=== PATIENT | female | born 1945 | race Caucasian/White ===

== ENCOUNTER 2019-10-26 01:35 | Day surgery (SDC) | payer MEDICARE, SELFPAY ==
--- NOTE | 2019-10-24 12:26 | PM.IMHP ---
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 she is here for re-excision of the lesion of the tongue Review of Systems Review of Systems: All systems reviewed & are unremarkable except as noted in HPI and below ROS unobtainable: No unobtainable due to mental condition ENT: Reports as per HPI Comments: lesion tongue Cardiovascular: Cardiovascular: Reports no additional cardiovascular complaints Respiratory: Respiratory: Reports no additional respiratory complaints Gastrointestinal: Gastrointestinal: Reports no additional gastrointestinal complaints Genitourinary: Genitourinary: Reports no additional female genitourinary complaints Musculoskeletal: Musculoskeletal: Reports no additional musculoskeletal complaints Integumentary/Breasts: Skin/Breast: Reports system reviewed and no additional complaints, except as docu Neurologic: Reports system reviewed and no additional complaints, except as documented Psychiatric: Psychiatric: Reports no additional psychiatric complaints and Reports depression [facility] Past Medical History Medical History Depression Hyperlipidemia Hypertension Hypothyroidism Surgical History Surgical History History of appendectomy History of tubal ligation Meds Home Medications and Allergies Home Medications Medication Instructions Recorded Confirmed Type Complete Multivitamin 1 tablet PO DAILY 08/10/19 08/17/19 History Hair, Skin, Nails with Biotin 1 tablet PO DAILY 08/10/19 08/17/19 History [place] Oil-1000 1 cap PO DAILY 08/10/19 08/17/19 History calcium carbonate-vitamin D3 1 cap PO DAILY 08/10/19 08/17/19 History [Calcium 600 with Vitamin D3] cholecalciferol (vitamin D3) 2,000 unit PO DAILY 08/10/19 08/17/19 History coQ10 (ubiquinol) 200 mg PO DAILY 08/10/19 08/17/19 History fluoxetine [Prozac] 20 mg PO DAILY 08/10/19 08/17/19 History ginseng 400 mg PO DAILY 08/10/19 08/17/19 History levothyroxine 75 mcg PO DAILY 08/10/19 08/17/19 History pravastatin 40 mg PO HS 08/10/19 08/17/19 History valsartan-hydrochlorothiazide 1 tablet PO DAILY 08/10/19 08/17/19 History [Diovan HCT] vitamin E 400 unit PO DAILY 08/10/19 08/17/19 History acetaminophen-codeine 1 tablet PO Q8H PRN #30 tablet 08/17/19 Rx [Tylenol-Codeine #3] Allergies Allergy/AdvReac Type Severity Reaction Status Date / Time aspirin Allergy Severe LIP Verified 08/17/19 08:00 SWELLING AND THROAT ibuprofen Allergy Severe Swelling Verified 08/17/19 08:00 of Lip/Tongue/Throat Exam HENMT: Head: normal to inspection Ears: hearing grossly normal bilaterally General nose exam: Normal external nose present Face and sinus: normal facial exam Mouth: Yes tongue abnormal (lesion lateral tongue) Teeth and gingiva: dentition normal Throat: posterior oropharynx normal H&P: Results ABG ABG results: Assessment and Plan Additional Plan plan is to excise the lesion of the tongue that is close with a margin is positive and reclosed the
[2019-10-24 12:57] VITALS: BMI 29.3
[2019-10-26] VITALS (9 sets, daily range): BP systolic 150–211; BP diastolic 64–80; PULSE 60–88; RESP 11–20; TEMP 36.4–37.4; O2SAT 98–100
--- NOTE | 2019-10-26 06:20 | WPDHPUPDATE1 ---
History and Physical Update Update Date/Time: 10/26/19 06:20 History and Physical has been reviewed, including an updated exam of the patient. There are NO changes in the patient's condition. Risks, benefits, and alternatives have been discussed and questions answered. Patient agrees to proceed with procedure.
[2019-10-26] MEDS: LACTATED RINGERS 1,000 ML 30 ML IV CONT (06:45)
--- NOTE | 2019-10-26 07:03 | P.PNAN_ITS ---
Anes - Initial Pre Proc Eval Procedure: Operation Date: 10/26/19 07:45 Proposed Procedures p Excision Squamous Cell Carcinoma on Tongue - Jhoan Mejias MD Date/Time: 10/26/19 07:03 Surgeon: Jhoan Mejias MD Pre Op Diagnosis: sq cell ca of tongue Patient Data Age: 74 Gender: F Height: 5 ft Weight: 68.1 kg Allergies Allergy/AdvReac Type Severity Reaction Status Date / Time aspirin Allergy Severe LIP Verified 10/24/19 12:55 SWELLING AND THROAT ibuprofen Allergy Severe Swelling Verified 10/24/19 12:55 of Lip/Tongue/Throat Home Medications Medication Instructions Recorded Confirmed Type Complete Multivitamin 1 tablet PO DAILY 08/10/19 10/24/19 History Hair, Skin, Nails with Biotin 1 tablet PO DAILY 08/10/19 10/24/19 History [place] Oil-1000 1 cap PO DAILY 08/10/19 10/24/19 History calcium carbonate-vitamin D3 1 cap PO DAILY 08/10/19 10/24/19 History [Calcium 600 with Vitamin D3] cholecalciferol (vitamin D3) 2,000 unit PO DAILY 08/10/19 10/24/19 History coQ10 (ubiquinol) 200 mg PO DAILY 08/10/19 10/24/19 History fluoxetine [Prozac] 20 mg PO DAILY 08/10/19 10/24/19 History ginseng 400 mg PO DAILY 08/10/19 10/24/19 History levothyroxine 75 mcg PO DAILY 08/10/19 10/24/19 History pravastatin 40 mg PO HS 08/10/19 10/24/19 History valsartan-hydrochlorothiazide 1 tablet PO DAILY 08/10/19 10/24/19 History [Diovan HCT] vitamin E 400 unit PO DAILY 08/10/19 10/24/19 History acetaminophen-codeine 1 tablet PO Q8H PRN #30 tablet 08/17/19 10/24/19 Rx [Tylenol-Codeine #3] Laboratory Tests 10/26/19 06:33 Sodium Pending Potassium Pending Chloride Pending Carbon Dioxide Pending BUN Pending Creatinine Pending Estim Creat Clear Calc Pending Estimated GFR Pending Glucose Pending Calcium Pending Patient hx anesthesia problems: none Family hx anesthesia problems: none PMFSH Past Medical History Medical History Depression Hyperlipidemia Hypertension Hypothyroidism Surgical History Surgical History History of appendectomy History of tubal ligation Anes - Eval Final PreProcedure Day of Procedure 10/26/19 07:03 Patient weight: overweight Heart: regular rate and rhythm Lungs: clear to auscultation Airway: Mallampati scale class II Neurological: alert and oriented Last oral intake: >/= 8 hours ASA classification: II Emergent: no Anesthetic plan: proceed Anesthesia type and monitoring: general ETT and standard monitoring Informed Consent: The patient's anesthetic plan and its attendant risks and benefits were discussed with the patient/family/POA. Questions were solicited and answers provided to the satisfaction of the patient/family/POA.
[2019-10-26 07:06] LABS: Blood Urea Nitrogen 16 mg/dL (7-17); Calcium 9.2 mg/dL (8.4-10.2); Carbon Dioxide 30 mmol/L (22-30); Chloride 101 mmol/L (98-107); Estimated CRCL calculation 69 ml/min; Estimated Glomerular Filt Rate > 60; Glucose 97 mg/dL (65-105); Potassium 3.7 mmol/L (3.4-5.0); Sodium 137 mmol/L (137-145)
[2019-10-26] MEDS: LIDO 1%/EPINEPHRINE 1:100,000 20 ML VIAL 6 ML INFILTRATE (08:00)
--- NOTE | 2019-10-26 08:18 | PM.PROC ---
Procedure Note - Detailed Date of procedure: 10/26/19 Pre-op diagnosis: sq cell ca of tongue pt was prepped. injeceted with local anesthetic.wide local incision 3cm by 3.53m. bovie for hemostasis Post-op diagnosis: same Procedure performed: Patient was prepped and draped general anesthesia the area on the right lateral tongue was injected with xylocaine with adrenaline. A wide local incision 3.5 x 3 cm was made dissection carried down to the musculature of the tongue hemostasis was obtained with bipolar cautery and Bovie. Was then closed with interrupted 3 0 chromic Anesthesia: GLMA and GETA Surgeon: Jhoan Mejias MD Estimated blood loss (mL): 50.0 Drains: No Packing: No Pathology: yes Complications: None Condition: stable Disposition: same day
[2019-10-26] MEDS: hydrALAZINE HCL 20 MG/ML VIAL 10 MG IV PUSH (09:41)
--- NOTE | 2019-10-26 09:41 | SUR.PHASEII ---
0935 - DR. FLANNERY NOTIFIED OF PT'S B/P 211/70 HR 60. ORDER RECEIVED.
== END 2019-10-26 10:14 | disposition home or self-care (01) ==
PROVIDERS: Anesthesiology; PCP Family Medicine; Visit Provider Otolaryngology
PROC: (CPT 40810; principal; 2019-10-26 07:45)
DX: C02.0 Malignant neoplasm of dorsal surface of tongue (principal); I10 Essential (primary) hypertension; E78.5 Hyperlipidemia, unspecified; E03.9 Hypothyroidism, unspecified; F32.9 Major depressive disorder, single episode, unspecified
CPT/HCPCS: 41112; 36415; 80048; 88305; J0330; J0360; J1100; J2250; J2405; J2704; J3010; J7120

== ENCOUNTER → 2021-10-20 00:37 | Outpatient (CLI) | payer MEDICARE, SELFPAY ==
[2021-10-20 11:27] LABS: SARS-CoV-2 RNA PCR Negative
== END ==
PROVIDERS: PCP Family Medicine; Visit Provider Otolaryngology
DX: Z01.812 Encounter for preprocedural laboratory examination (principal); Z20.822 Contact with and (suspected) exposure to COVID-19
CPT/HCPCS: C9803; U0003; U0005

== ENCOUNTER 2021-10-20 09:04 | Outpatient (CLI) | payer MEDICARE, SELFPAY ==
--- NOTE | 2021-10-20 09:15 | ECG_ITS ---
Measurements Intervals [place] Rate: 66 P: 19 [place]: 154 QRS: -5 QRSD: 102 T: 30 QT: 406 QTc: 428 Interpretive Statements SINUS RHYTHM MINIMAL VOLTAGE CRITERIA FOR LVH, CONSIDER NORMAL VARIANT [MEETS CRITERIA IN ONE OF: R(aVL), S(V1), R(V5), R(V5/V6)+S(V1)] COMPARED TO ECG 08/11/2019 13:39:51 ALTERED LEAD POSITION IN THE LATERAL PRECORDIAL LEADS Electronically Signed On 10-20-2021 14:25:29 CDT by Brett Leong M.D.
[2021-10-20 09:43] LABS: Anion Gap 5 mmol/L (8-16); Blood Urea Nitrogen 19 mg/dL (7-17); Calcium 9.4 mg/dL (8.4-10.2); Carbon Dioxide 30 mmol/L (22-30); Chloride 102 mmol/L (98-107); Estimated Glomerular Filt Rate > 60; Glucose 88 mg/dL (65-110); Potassium 3.5 mmol/L (3.4-5.0); Sodium 137 mmol/L (137-145)
== END 2021-10-20 09:05 | disposition home or self-care (01) ==
LOC: ANHSURGERY 09:08
PROVIDERS: Anesthesiology; PCP Family Medicine; Visit Provider Otolaryngology
DX: Z01.812 Encounter for preprocedural laboratory examination (principal); I10 Essential (primary) hypertension; Z20.822 Contact with and (suspected) exposure to COVID-19
CPT/HCPCS: 36415; 80048; 93005; C9803; U0003; U0005

== ENCOUNTER 2021-10-23 02:49 | Day surgery (SDC) | payer MEDICARE, SELFPAY ==
--- NOTE | 2021-10-17 10:31 | PC.NURSE ---
Addendum entered by Valentina Carrasco RN 10/17/21 10:46: COVID TESTING 10/20/21 AT 0900 Original Note: Report to the Outpatient Waiting Room, entrance under the green pavilion located off [facility], at time __714 on date __10/23/21 . OR Time: _914 . - You and your visitor will be asked a series of questions to screen for COVID 19 for your protection. - A mask is required within the hospital. Preoperative COVID Testing Requirements: No COVID Test needed if: (proof is required; if not received patient will have Rapid Test prior to entry) - Patient has received COVID Vaccine at least 14 days prior to procedure date or - Patient has positive COVID test result within last 90 days of surgery date. COVID Test needed if above criteria is not met If not COVID vaccinated a COVID test must be conducted within 72 hours of surgery and patient is asked to isolate self from time of testing until procedure. You will go to the [facility] for your COVID testing. The [facility] Testing site is located at the corner of [address] [facility]. You will only be called if COVID results are positive and your surgeon may reschedule your elective surgery date. Patients may have clear liquids (water, carbonated beverages, clear teas, apple juice) until 3 hours prior to surgery with a maximum of 20 ounces. - No food from midnight until time of surgery Take the following medications with a SIP of water the morning of surgery: ___LEVOTHYROXINE, PROZAC Medications to discontinue per physician __ALL VITAMINS AND SUPPLEMENTS 3 DAYS PRE OP Date to take last dose___10/19/21 Please no make-up, nail divehi, hairspray, perfume, deodorant, or body powder the day of surgery. No jewelry (including any body piercings) or valuables the day of surgery, leave them at home. Please take a shower or bath the night before, or the morning of, surgery with an antibacterial soap. Wear comfortable, loose fitting clothing. Children are encouraged to wear pajamas. - Jewelry must be removed prior to entering the operating room. Rings and piercings that are not removed may be cut off. - The hospital will not accept responsibility for valuables. - Please leave all valuables, including medications, at home the day of surgery. If you are going home after surgery, a licensed hazmat truck driver must drive you home. - NO public transportation without another adult. - We recommend that an adult stay with you for 24 hours following discharge. - We also recommend that you do not drive, make important decision, drink alcoholic beverages, or take any drugs that were not prescribed by your health care provider for at least 24 hours after your discharge time. One visitor will be allowed to accompany the patient into the hospital. Patients visitor will be instructed to remain with patient at all times or leave the building. We will allow the visitor to come back to the postoperative area when patient is ready. Follow any additional instructions given to you from your surgeon. Telephone instructions given to _PATIENT and asked if any additional questions and then verbalized understanding. Patient advised to call surgeon office or pre surgery nurse liaison [phone] if any additional questions.
[2021-10-17 10:38] VITALS: BMI 28.9
--- NOTE | 2021-10-21 06:30 | P.HP_ITS ---
History of Present Illness History of Present Illness Consent: Risks, benefits, and alternatives have been discussed and questions answered. Patient agrees to proceed with procedure. 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 it was cancer several years agoKriss Pacheco is a 76 year old female [facility], [facility] Past Medical History Medical History Depression Hyperlipidemia Hypertension Hypothyroidism Normal colonoscopy (~2019) Every 5 years, polyps Squamous acanthoma of face Squamous cells removed from tongue Tongue abnormality Surgical History Surgical History History of appendectomy History of oral surgery History of tubal ligation Family History Family History Sibling Manic depression Pancreas cancer Grandparent Manic depression Social History Social History Smoking status: Never smoker Second hand tobacco smoke exposure: No Alcohol intake: never Substance use: never Substance use type: does not use Gender identity (if verbalized by the patient): Female Spiritual care concerns: No Comments medical social family surgical history all noncontributory Meds Home Medications and Allergies Home Medications Medication Instructions Recorded Confirmed Type Complete Multivitamin 1 tablet PO DAILY 08/10/19 10/17/21 History Hair, Skin, Nails with Biotin 1 tablet PO DAILY 08/10/19 10/17/21 History [place] Oil-1000 1 cap PO DAILY 08/10/19 10/17/21 History calcium carbonate-vitamin D3 1 cap PO DAILY 08/10/19 10/17/21 History [Calcium 600 with Vitamin D3] cholecalciferol (vitamin D3) 2,000 unit PO DAILY 08/10/19 10/17/21 History coQ10 (ubiquinol) 200 mg PO DAILY 08/10/19 10/17/21 History ginseng 400 mg PO DAILY 08/10/19 10/17/21 History vitamin E 400 unit PO DAILY 08/10/19 10/17/21 History levothyroxine 75 mcg tablet 75 mcg PO DAILY #90 tablet 10/30/20 10/17/21 Rx Prozac 20 mg capsule 20 mg PO DAILY #90 cap NS 10/31/20 10/17/21 Rx valsartan 320 1 tablet PO DAILY #90 tablet 11/13/20 10/17/21 Rx mg-hydrochlorothiazide 25 mg tablet pravastatin 40 mg tablet 40 mg PO HS #90 tablet 07/15/21 10/17/21 Rx Allergies Allergy/AdvReac Type Severity Reaction Status Date / Time aspirin Allergy Severe LIP Verified 10/17/21 10:19 SWELLING AND THROAT ibuprofen Allergy Severe Swelling Verified 10/17/21 10:19 of Lip/Tongue/Throat Exam Narrative: chest clear heart without murmurs abdomen soft as sore on the right lateral tongue Assessment and Plan Additional Plan plan is excision lesion of the tongue
[2021-10-23] VITALS (9 sets, daily range): BP systolic 156–210; BP diastolic 58–98; PULSE 60–73; RESP 12–16; TEMP 36.2–36.9; O2SAT 92–100
--- NOTE | 2021-10-23 06:29 | WPDHPUPDATE1 ---
History and Physical Update Update Date/Time: 10/23/21 06:29 History and Physical has been reviewed, including an updated exam of the patient. There are NO changes in the patient's condition. Risks, benefits, and alternatives have been discussed and questions answered. Patient agrees to proceed with procedure.
[2021-10-23] MEDS: LACTATED RINGERS 1,000 ML 30 ML IV CONT (07:03)
--- NOTE | 2021-10-23 07:41 | WPDANESEPPF ---
Anes - Initial Pre Proc Eval Procedure: Operation Date: 10/23/21 08:30 Proposed Procedures p Excision Leukoplakia Right Lateral Tongue with Frozen Section - Jhoan Mejias MD Date/Time: 10/23/21 07:41 Surgeon: Jhoan Mejias MD Pre Op Diagnosis: Right Lateral Tongue Lesion Patient Data Age: 76 Gender: F Height: 1.52 m Weight: 69.2 kg Last Vital Signs Temp 36.9 C 10/23/21 07:05 Pulse 68 10/23/21 07:05 Resp 16 10/23/21 07:05 BP 166/58 H 10/23/21 07:05 Pulse Ox 99 10/23/21 07:05 Allergies Allergy/AdvReac Type Severity Reaction Status Date / Time aspirin Allergy Severe LIP Verified 10/23/21 06:38 SWELLING AND THROAT ibuprofen Allergy Severe Swelling Verified 10/23/21 06:38 of Lip/Tongue/Throat Home Medications Medication Instructions Recorded Confirmed Type Complete Multivitamin 1 tablet PO DAILY 08/10/19 10/23/21 History Hair, Skin, Nails with Biotin 1 tablet PO DAILY 08/10/19 10/23/21 History [place] Oil-1000 1 cap PO DAILY 08/10/19 10/23/21 History calcium carbonate-vitamin D3 1 cap PO DAILY 08/10/19 10/23/21 History [Calcium 600 with Vitamin D3] cholecalciferol (vitamin D3) 2,000 unit PO DAILY 08/10/19 10/23/21 History coQ10 (ubiquinol) 200 mg PO DAILY 08/10/19 10/23/21 History ginseng 400 mg PO DAILY 08/10/19 10/23/21 History vitamin E 400 unit PO DAILY 08/10/19 10/23/21 History levothyroxine 75 mcg tablet 75 mcg PO DAILY #90 tablet 10/30/20 10/23/21 Rx Prozac 20 mg capsule 20 mg PO DAILY #90 cap NS 10/31/20 10/23/21 Rx valsartan 320 1 tablet PO DAILY #90 tablet 11/13/20 10/23/21 Rx mg-hydrochlorothiazide 25 mg tablet pravastatin 40 mg tablet 40 mg PO HS #90 tablet 07/15/21 10/23/21 Rx Patient hx anesthesia problems: none Family hx anesthesia problems: none Results Review: All pre-operative results and documents have been reviewed as part of the pre-operative evaluation. [facility] Past Medical History Medical History Depression Hyperlipidemia Hypertension Hypothyroidism Normal colonoscopy (~2019) Every 5 years, polyps Squamous acanthoma of face Squamous cells removed from tongue Tongue abnormality Surgical History Surgical History History of appendectomy History of oral surgery History of tubal ligation Family History Family History Sibling Manic depression Pancreas cancer Grandparent Manic depression Social History Social History Smoking status: Never smoker Second hand tobacco smoke exposure: No Alcohol intake: never Substance use: never Substance use type: does not use Living arrangements: with family Gender identity (if verbalized by the patient): Female Spiritual care concerns: No Anes - Eval Final PreProcedure Day of Procedure 10/23/21 07:41 Patient weight: overweight Heart: regular rate and rhythm Lungs: clear to auscultation Airway: Mallampati scale class II Neurological: alert and oriented Last oral intake: >/= 8 hours ASA classification: III Emergent: no Anesthetic plan: proceed Anesthesia type and monitoring: general ETT and standard monitoring Results Review: All pre-operative results and documents have been reviewed as part of the pre-operative evaluation. Informed Consent: The patient's anesthetic plan and its attendant risks and benefits were discussed with the patient/family/POA. Questions were solicited and answers provided to the satisfaction of the patient/family/POA.
[2021-10-23] MEDS: LIDO 1%/EPINEPHRINE/PF 1:200,000 30 ML VIAL 10 ML XX (08:07)
--- NOTE | 2021-10-23 08:25 | W.PM.PROC2 ---
Procedure Note - Detailed Date of Procedure 10/23/21 Pre-op Diagnosis Right Lateral Tongue Lesion Post-op Diagnosis Same Procedure Performed Excision leukoplakia right lateral tongue Surgeon Jhoan Mejias MD Description of Procedure After induction of anesthesia the area of the right lateral tongue was injected with xylocaine with adrenaline an elliptical incision made the lesion was removed sent for pathology and cauterized and closed with multiple 4-0 multiple 3-0 Vicryl
[2021-10-23] MEDS: fentaNYL CITRATE INJ (*CRX) 100 MCG/2 ML VIAL 25 MCG IV PUSH ×3 (09:04→09:59)
--- NOTE | 2021-10-23 10:22 | SUR.PHASEII ---
pt BP is elevated even after pain control. This nurse called dr moraes for BP control and he gave verbal meds placed in oct.
== END 2021-10-23 10:58 | disposition home or self-care (01) ==
PROVIDERS: PCP Family Medicine; Visit Provider Otolaryngology
PROC: (CPT 41112; principal; 2021-10-23 08:30)
DX: K14.8 Other diseases of tongue (principal); I10 Essential (primary) hypertension; E78.5 Hyperlipidemia, unspecified; E03.9 Hypothyroidism, unspecified; F32.9 Major depressive disorder, single episode, unspecified; Z85.810 Personal history of malignant neoplasm of tongue
CPT/HCPCS: 41112; 88305; 88331; J0330; J1100; J2405; J2704; J3010; J7120

== ENCOUNTER → 2022-12-26 11:09 | Outpatient (CLI) | payer MEDICARE, SELFPAY ==
--- NOTE | ~2022-12-26 | MR_ITS ---
EXAMINATION: MR lumbar spine wo con DATE: 12/26/2022 12:07 INDICATION: Lumbago. Left-sided low back pain. TECHNIQUE: Magnetic resonance imaging (MRI) of the lumbar spine was performed without intravenous con trast. Sequences included sagittal T2-weighted FSE, sagittal T2-weighted FS FSE, sagittal T1-weighted FSE, and axial T2-weighted FSE. COMPARISON: None FINDINGS: There is 3 degrees dextrocurvature of lumbar spine. Vertebral body heights are normal. Ther e is mildly decreased disc height at L1-L2, moderately decreased disc height at L2-L3, and mildly dec reased disc height at L4-L5. The distal spinal cord signal intensity is normal. The conus medullaris is at L1. The following disc levels are specifically discussed: L1-L2: The disc is bulging. There is mild bilateral facet joint osteoarthritis. There is mild bilater al neural foraminal stenosis. There is mild central canal stenosis. L2-L3: The disc is bulging. There is moderate right and mild left facet joint osteoarthritis. There i s mild bilateral neural foraminal stenosis. There is mild central canal stenosis. L3-L4: The disc is bulging and has an annular fissure. There is severe bilateral facet joint osteoart hritis. There is mild bilateral neural foraminal stenosis. There is mild central canal stenosis. L4-L5: The disc is bulging with superimposed central extrusion. There is severe bilateral facet joint osteoarthritis. There is mild bilateral neural foraminal stenosis. There is moderate central canal s tenosis. L5-S1: The disc is bulging. There is severe right and moderate left facet joint osteoarthritis. There is mild bilateral neural foraminal stenosis. There is mild central canal stenosis. IMPRESSION: 1. Moderate lumbar spondylosis. Reviewed, dictated and finalized at location A.
== END ==
PROVIDERS: PCP Family Medicine; Visit Provider Nurse Practitioner Family
DX: M47.896 Other spondylosis, lumbar region (principal)
CPT/HCPCS: 72148

== ENCOUNTER → 2023-09-06 09:49 | Outpatient (CLI) | payer MEDICARE, SELFPAY ==
--- NOTE | ~2023-09-06 | XR_ITS ---
XR hip BI 2V w AP pelvis DATE: 09/06/2023 10:37 INDICATION: Sacrococcygeal disorder TECHNIQUE: AP pelvis. AP and lateral views of each hip. COMPARISON: None FINDINGS: The pubic symphysis and sacroiliac joints are intact. Hip joint spaces are symmetric and re latively well preserved. No pelvic fracture or bone destruction. No fracture, dislocation, avascular necrosis or bone destruction of either hip is detected. Surgical clips overlie the right lower quadrant. IMPRESSION: No significant abnormality of pelvis or either hip Reviewed, dictated and finalized at location B. DEVELOPER CONSULTANT
== END ==
PROVIDERS: PCP Nurse Practitioner Family; Visit Provider Nurse Practitioner Family
DX: M53.3 Sacrococcygeal disorders, not elsewhere classified (principal)
CPT/HCPCS: 73521

== ENCOUNTER 2024-09-29 10:06 | Outpatient (CLI) | payer MEDICARE, SELFPAY ==
--- NOTE | ~2024-09-29 | MM_ITS ---
EXAMINATION: MM screening bari BI w isa HISTORY: Screening TECHNIQUE: Craniocaudal and mediolateral oblique 3-D tomosynthesis images were obtained and synthetic 2-D images were generated. CAD analysis was submitted and interpreted. COMPARISON: 08/13/2015 BREAST PARENCHYMAL COMPOSITION: Not dense: There are scattered areas of fibroglandular density. FINDINGS: There is no evidence of suspicious mass, calcification, or architectural distortion to sugg est malignancy in either breast. There has been no suspicious interval change. IMPRESSION: 1. No mammographic evidence of malignancy. 2. Recommend routine screening mammography in one year. BI-RADS Category 1: Negative Reviewed, dictated and finalized at location L. OR FIRMWARE ENGINEER
--- NOTE | ~2024-09-29 | DEXA_ITS ---
Bone Density Report Name: YONY ALEXIS Age: 79 Sex: Female Ethnicity: White Date of : 1945 Indication: postmenopausal; screening for osteoporosis; Referring Provider: SHERIN PARRA Study: Bone densitometry was performed. Exam Date: September 29, 2024 Accession number: [id number] Bone Density: Region BMD T-score Z-score Classification AP Spine(L1-L4) 0.940 -1.0 1.8 Normal Femoral Neck (Left) 0.704 -1.3 1.1 Osteopenia Total Hip (Left) 0.831 -0.9 1.2 Normal Femoral Neck (Right) 0.670 -1.6 0.7 Osteopenia Total Hip (Right) 0.844 -0.8 1.3 Normal Total Hip Mean 0.837 -0.9 1.3 Normal World Health Organization criteria for BMD impression classify patients as: Normal (T-score at or above -1.0), Osteopenia (T-score between -1.0 and -2.5), or Osteoporosis (T-score at or below -2.5). 10-year Fracture Risk: FRAX not reported because: Treated for osteoporosis Clinical Information Provided by Patient: Is being treated for osteoporosis Has used the following medications: Fosamax (i.e. alendronate), Vitamin D, Calcium Patient maximum height was 60 Menopause Age: 53 No regular weight bearing exercise Onset of menses at age 12 Number of children 2 Impression: The patient has low bone mass, based on the Right Femoral Neck T-score. Discussion: It is important to ask patients whether they are taking their medications and to encourage continued and appropriate compliance with their osteoporosis therapies to reduce fracture risk. It is also important to review their risk factors and encourage appropriate calcium and vitamin D intakes, exercise, fall prevention and other lifestyle measures. Follow-Up: Consider a repeat BMD and Vertebral Fracture Assessment (VFA) exam in 2 years or sooner if medically necessary, to reassess this patient's status. Reported by: CHAYITO on 09/29/2024 10:49:00 AM. Reviewed, dictated and finalized at location AKristopher BILLINGSLEY
== END 2024-09-29 10:07 | disposition home or self-care (01) ==
LOC: ANHIMG 10:06
PROVIDERS: PCP Family Medicine; Visit Provider Family Medicine
DX: Z12.31 Encounter for screening mammogram for malignant neoplasm of breast (principal); Z78.0 Asymptomatic menopausal state; M85.89 Other specified disorders of bone density and structure, multiple sites
CPT/HCPCS: 77063; 77067; 77080

== ENCOUNTER 2025-03-29 11:21 | Emergency (ER) | payer MEDICARE, SELFPAY ==
--- NOTE | ~2025-03-29 | XR_ITS ---
EXAMINATION: XR wrist LT min 3V DATE: 03/29/2025 11:58 INDICATION: Left wrist pain. Ulnar side one week after lifting TECHNIQUE:4 images of the left wrist were obtained. COMPARISON: none FINDINGS: Bones appear osteopenic. Severe joint space narrowing in the first carpometacarpal joint with adjacent soft tissue swelling. No fracture. No dislocation. Soft tissue swelling about the left wrist. IMPRESSION: 1. Severe joint space narrowing in the first carpometacarpal joint with adjacent soft tissue swelling. 2. No fracture identified. If symptoms persist or worsen, consider a short-term follow-up study or additional imaging for further assessment. Reviewed, dictated and finalized at location A. IMPRESSION: 1. Severe joint space narrowing in the first carpometacarpal joint with adjacen t soft tissue swelling. 2. No fracture identified. If symptoms persist or worsen, consider a short-term follow-up study or additio nal imaging for further assessment.
[2025-03-29 11:32] VITALS: BP 192/71; PULSE 68; RESP 18; TEMP 36.8; O2SAT 98
--- NOTE | 2025-03-29 11:53 | ED_ITS ---
HPI - Extremity Injury (Upper) General Chief Complaint: Extremity Injury, Upper Stated Complaint: Left Arm Pain Time Seen by Provider: 03/29/25 11:40 Source: patient and RN notes reviewed Mode of arrival: ambulatory Limitations: no limitations History of Present Illness HPI narrative: 79-year-old female presents Express Care complaining of left wrist pain for approximately 1 week. Patient says 1 week ago she was lifting heavy tubs full of books since then patient reports a continue have left wrist pain primarily on her lateral with radiating pain upper forearm. Patient states yesterday she was lifting groceries with her left wrist and cause worsening pain. Patient took Tylenol with minimal relief. Patient denies any numbness or tingling, or any other injuries. Patient has a history of osteoporosis. Related Data Home Medications ?Medication ?Instructions ?Recorded ?Confirmed ?Last Taken ?Type ascorbic acid 7.5 mg-vit E 7.5 1 tablet PO DAILY 08/1003/09/25 10/19/21 History unit-biotin 1,250 mcg chewable tablet (Hair,Skin,Nails with Biotin) calcium 600 mg (as 1 cap PO DAILY 08/10/19/09/0210/19/21 History carbonate)-vitamin D3 12.5 mcg (500 unit) capsule (Calcium with Vit D3) cholecalciferol (vitamin D3) 50 2,000 unit PO DAILY 03/09/25 10/19/21 History mcg (2,000 unit) tablet coQ10 (ubiquinol) 200 mg capsule 200 mg PO DAILY 08/1003/09/25 10/19/21 History ginseng 250 mg capsule 400 mg PO DAILY 08/10/1909/0210/19/21 History multivitamin,aa-guko-xcmfcsie 1 tablet PO DAILY 07/26/23 10/19/21 History (Complete Multivitamin tablet) salmon oil-omega-3 fatty acids 1 cap PO DAILY 08/10/19 03/09/25 10/19/21 History 1,000 mg-200 mg capsule ([place] Oil-) vitamin E 268 mg (400 unit) capsule 400 unit PO DAILY 08/10/19 03/09/25 10/19/21 History latanoprost 0.005 % eye drops drp 03/29/25 Unknown Hi story Allergies Allergy/AdvReac Type Severity Reaction Status Date / Time aspirin Allergy Severe LIP Verified 03/29/25 11:24 SWELLING AND THROAT ibuprofen Allergy Severe Swelling Verified 03/29/25 11:24 of Lip/Tongue/Throat codeine Allergy Intermediate headache Verified 03/29/25 11:24 Review of Systems Review of Systems: CONSTITUTIONAL: Denies fever, chills, or sweats. EYES: Denies visual changes, redness, or discharge. ENT: Denies rhinorrhea, congestion, sore throat, or otalgia. CARDIOVASCULAR: Denies chest pain, palpitations, or edema. RESPIRATORY: Denies cough or dyspnea. GASTROINTESTINAL: Denies abdominal pain, nausea, vomiting, or diarrhea. GENITOURINARY: Denies dysuria or hematuria. SKIN: Denies rash, wound, or itching. MUSCULOSKELETAL: Denies back pain, joint pain, or myalgia. Positive for left wrist pain. NEUROLOGIC: Denies headache, numbness, or weakness. PSYCHIATRIC: Denies anxiety or depression. All other systems reviewed are negative, except as documented in HPI. 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 Depression Hypothyroidism Hypertension Hyperlipidemia Surgical History Surgical History History of oral surgery History of tubal ligation History of appendectomy Family History Family History Sibling Manic depression Pancreas cancer Grandparent Manic depression Other (atherosclerosis) Social History Social History Social History: Caffeine-occasionally Smoking status: Never smoker Second hand tobacco smoke exposure: No Alcohol intake: never Substance use: never Substance use type: does not use Lack of Transportation: No Lack of Food: Never True Current Housing: I Have Housing Concerned About Future Housing: No Difficulty Paying Gas/Electric Bills: No Difficulty Paying for Meds: No Currently Unemployed: No Education: Decline to Answer Difficulty w/ Childcare or Family Care: No Living arrangements: with family Occupation/Education: retired Gender identity (if verbalized by the patient): Female Spiritual care concerns: No Comments At the time of my signature, I reviewed and agree with the nursing past medical, surgical, social, and family history. There is no relevant family history pertinent to the patient complaint. Exam Narrative: GENERAL: This is a well-nourished, well-developed adult, in no apparent distress. They are non ill-appearing, nontoxic appearing. Patient is wearing a sling. HEAD: normocephalic, atraumatic. EYES: Sclera clear/white. Vision is grossly intact. Conjunctiva normal. Extraocular movement intact. EARS: External ears normal Hearing grossly intact. NOSE: External nose normal THROAT: Mucous membranes moist NECK: Neck supple CARDIOVASCULAR: Regular rate and rhythm RESPIRATORY: Respiratory rate normal, respiratory effort nonlabored, no respiratory distress NEURO: awake, alert, and oriented to person, place and time. There were no obvious focal neurologic abnormalities. EXTREMITIES: Left wrist. No obvious deformity, injury, swelling, bruising, redness. There is pain through full range of motion. Tenderness to palpation to lateral wrist. Capillary refill less than 3 seconds. Left radial Pulse 2 +palpable. Normal sensation. Neurovascular status intact distal injury. Patient can make a fist, thumbs-up sign, stop sign, okay sign. Patient is able to wiggle her fingers. Radial and ulnar nerve distribution intact. BACK: Nontender without deformity. Course Course Emergency Course: Portions of this record may have been created with voice recognition software Level of Care: Express Care Visit Vital Signs Vital signs: Vital Signs Temperature 98.2 F 03/29/25 11:32 Pulse Rate 68 03/29/25 11:32 Respiratory Rate 18 03/29/25 11:32 Blood Pressure 192/71 H 03/29/25 11:32 Pulse Oximetry 98 03/29/25 11:32 Oxygen Delivery Room Air 03/29/25 11:32 Temperature 98.2 F 03/29/25 11:32 Pulse Rate 68 03/29/25 11:32 Respiratory Rate 18 03/29/25 11:32 Blood Pressure 192/71 H 03/29/25 11:32 Pulse Oximetry 98 03/29/25 11:32 Oxygen Delivery Room Air 03/29/25 11:32 Reviewed MDM - Extremity Injury (Upper) MDM Narrative Medical decision making narrative: X-ray left wrist is negative for any fractures or acute findings. Severe joint space narrowing noted the 1st carpometacarpal joint, likely arthritis. Patient likely has a wrist sprain. Patient Given Jann wrap for compression. Discussed physical exam findings. Advised supportive measures and signs/symptoms to go to the ER. Pt is appropriate for outpt treatment and f/u. Patient's blood pressure elevated today. Patient is asymptomatic, no headaches, vision changes, no chest pain, no other symptoms. Patient has not taken her medications yet today for blood pressure. Advised patient patient take her medication and follow-up with PCP. Patient called the having severe pain. Going to take the NSAIDs due to allergy. Patient taking Tylenol without relief. Small prescription of Tilly sent. Advised patient to not drive or operate machinery while taking this medication as it may make her drowsy and may increase her risk of falling. Patient is aware of this and patient's spouse will help take care of her. Differential Diagnosis Differential diagnosis: Likely sprain and strain of wrist, fracture of wrist and fracture of hand Imaging Data Radiologist's impression: ITS Impressions Wrist X-Ray 03/29/25 12:00 IMPRESSION: 1. Severe joint space narrowing in the first carpometacarpal joint with adjacent soft tissue swelling. 2. No fracture identified. If symptoms persist or worsen, consider a short-term follow-up study or additional imaging for further assessment. Critical Care Time Critical Care Time Critical Care Time: No Discharge Plan Discharge Clinical Impression: Left wrist sprain Qualifiers: Encounter type: initial encounter Wrist sprain location: unspecified location Qualified Code(s): S63.502A - Unspecified sprain of left wrist, initial encounter Patient Disposition: Home Condition: Stable Instructions: Wrist Sprain (ED) Additional Instructions: The x-ray of your left wrist is negative for any fractures. It Does show arthritis in your hand. Rest and elevate the the left wrist, uses as tolerated. Avoid heavy lifting with your left wrist until pain resolves. Apply ice 15-20 minute intervals several times a day Keep it wrapped with JANN or use a wrist cock-up splint You may take up to 1000 mg Tylenol every 6-8 hours. Do not exceed 1000 mg per dose, do exceed more than 4000 mg of Tylenol in a day. Follow up with your primary care provider or orthopedist in 1-2 weeks especially pain persist. Patient Language: Portuguese Prescriptions: New hydrocodone-acetaminophen 5-325 mg tablet 1 tablet PO Q12H PRN (Reason: pain) Qty: 6 0RF No Action latanoprost 0.005 % drops fluoxetine [Prozac] 20 mg capsule 20 mg PO DAILY Qty: 90 3RF pravastatin 40 mg tablet 40 mg PO HS Qty: 90 2RF levothyroxine [Synthroid] 50 mcg tablet 50 mcg PO DAILY Qty: 90 0RF valsartan-hydrochlorothiazide [Diovan HCT] 320-25 mg tablet 1 tablet PO DAILY Qty: 90 3RF vitamin E 400 unit Capsule 400 unit PO DAILY ginseng 250 mg Capsule 400 mg PO DAILY Complete Multivitamin Tablet 1 tablet PO DAILY [place] Oil-1000 1,000-200 mg Capsule 1 cap PO DAILY cholecalciferol (vitamin D3) 2,000 unit Tablet 2,000 unit PO DAILY coQ10 (ubiquinol) 200 mg Capsule 200 mg PO DAILY calcium carbonate-vitamin D3 [Calcium 600 with Vitamin D3] 600 mg(1,500mg) - 500 unit Capsule 1 cap PO DAILY Hair, Skin, Nails with Biotin 7.5-7.5-1,250 mg-unit-mcg Tablet,Chewable 1 tablet PO DAILY Follow-up/Referrals: Gregorio Haro MD [Physician, Orthopedics] Fatemeh Moran MD [Primary Care Provider, Family Practice] Time of Disposition: 12:21
== END 2025-03-29 12:25 | disposition home or self-care (01) ==
PROVIDERS: PCP Family Medicine
DX: S63.502A Unspecified sprain of left wrist, initial encounter (principal); E03.9 Hypothyroidism, unspecified; E78.5 Hyperlipidemia, unspecified; I10 Essential (primary) hypertension; X50.9XXA Other and unspecified overexertion or strenuous movements or postures, initial encounter
CPT/HCPCS: 73110; 99213; G0463